=== PATIENT | female | born 1995 | race Caucasian/White ===

== ENCOUNTER → 2018-09-02 | Outpatient (CLI) | payer BC ==
[~2018-09-02] MED LIST: AMIT10TA6 PO; FEXO180T84 PO; HYOS0.1217 PO; IBP200T PO; IOHEXOL 350 MG/ML 100 ML (OMNIPAQUE 350) VIAL IV ONE; KETO-22 PO; LEVO500T69 PO; METO-354 PO; NS 250 ML (IVPB) BAG IV ONE; ONDN4T PO; [UNRECOGNIZED DRUG - REMARK] PO
--- NOTE | 2018-09-02 19:12 | Diagnostic Imaging Report ---
PROCEDURE: CT abdomen and pelvis with contrast, rule out appendicitis. TECHNIQUE: Multiple contiguous axial images were obtained through the abdomen and pelvis after the administration of intravenous contrast. DATE: September 02, 2018. COMPARISON: CT abdomen and pelvis without contrast February 27, 2013. INDICATION: 23-year-old female, right lower quadrant pain, nausea, vomiting. FINDINGS: The visualized portions of the lung bases are clear. The heart is not enlarged. There is no pericardial effusion. The liver is normal in size and contour. There is no identified liver lesion. The main, right, and left portal veins are patent. The gallbladder is unremarkable. There is no intrahepatic or extrahepatic bile duct dilation. The main pancreatic duct is not abnormally dilated. Unremarkable appearance of the pancreatic parenchyma. The spleen is not enlarged. There are small accessory splenules. The adrenal glands are unremarkable. Unremarkable appearance of the renal parenchyma. The urinary collecting systems are not distended. There is no identified renal or ureteral stone. The urinary bladder is unremarkable in appearance. There is low attenuation within the central aspect of the uterus potentially reflecting a small amount of fluid in the endometrial canal. There are bilateral ovarian follicles. There is trace amount of free pelvic fluid which is potentially physiologic. The appendix is well seen on axial image 99 and adjacent sequential images. There is no evidence of acute appendicitis. The intestinal tract is not distended. There is no free intraperitoneal air. There is no drainable fluid collection. There is no identified abnormally enlarged lymph node within the abdomen or pelvis which specifically meets CT size criteria for adenopathy. There is sclerotic lesion in the right femoral head subcentimeter in size most likely reflects a benign bone island. There is no identified acute bony abnormality. IMPRESSION: CT ABDOMEN AND PELVIS. 1. No evidence of acute appendicitis or other acute abnormality within the abdomen or pelvis. 2. Trace amount of free pelvic fluid which is potentially physiologic. Probable small amount of fluid within the endometrial canal and bilateral ovarian follicles. Dictated by: Dictated on workstation # [id number]
== END ==
LOC: RAD 14:57
PROVIDERS: ATTEND Internal Medicine
DX: R10.31 Right lower quadrant pain (principal); R11.2 Nausea with vomiting, unspecified
CPT/HCPCS: 74177

== ENCOUNTER → 2019-01-16 | Outpatient (CLI) | payer BC ==
[~2019-01-16] MED LIST changes: -IOHEXOL 350 MG/ML 100 ML (OMNIPAQUE 350) VIAL IV ONE; -NS 250 ML (IVPB) BAG IV ONE
--- NOTE | 2019-01-16 16:16 | Diagnostic Imaging Report ---
PROCEDURE: US Thyroid. TECHNIQUE: Multiple Real-time grayscale images were obtained of the thyroid in various projections. INDICATION: Goiter and dysphagia. FINDINGS: The right lobe of the thyroid measures 4.3 x 1.7 x 1.7 cm. The left lobe measures 4.7 x 1.4 x 1.5 cm. Both lobes are heterogeneous. No discrete thyroid mass is identified, however. The isthmus is 4 mm in thickness. IMPRESSION: Heterogeneous thyroid. No discrete thyroid mass is detected. Dictated by: Dictated on workstation # [id number]
== END ==
LOC: RAD 14:57
PROVIDERS: ATTEND Internal Medicine
DX: E04.9 Nontoxic goiter, unspecified (principal)
CPT/HCPCS: 76536

== ENCOUNTER → 2020-03-02 | Outpatient (CLI) | payer BC ==
--- NOTE | 2020-03-02 13:23 | Diagnostic Imaging Report ---
INDICATION: Cramping in the left pelvis. The uterus measures 9.3 x 6.3 x 5.8 cm. There is a tiny intrauterine gestational sac approximately 12 mm in diameter. No pole is seen at this time. A yolk sac is visualized. No akila-gestational sac hemorrhage is detected. Right ovary was not visualized. Left ovary measures 3.5 x 2.5 x 2.5 cm. There is no free fluid or adnexal mass. IMPRESSION: Early intrauterine gestational sac, without evidence of a pole. This could be owing to early gestation. Follow-up ultrasound or correlation with serial beta hCG levels could be performed to confirm viability. Dictated by: Dictated on workstation # [id number]
== END ==
LOC: RAD 11:23
PROVIDERS: ATTEND Internal Medicine
DX: O99.89 Other specified diseases and conditions complicating pregnancy, childbirth and the puerperium (principal); R10.2 Pelvic and perineal pain
CPT/HCPCS: 76801; 76817

== ENCOUNTER → 2022-01-12 | Outpatient (CLI) | payer BC ==
--- NOTE | 2022-01-12 08:26 | Diagnostic Imaging Report ---
CLINICAL INDICATION: Patient with right upper quadrant, abdominal pain and nausea. EXAM: Right upper quadrant ultrasound. COMPARISON: Right quadrant ultrasound dated 10/18/2009. FINDINGS: The pancreas has normal echogenicity and configuration. The abdominal aorta and IVC are unremarkable. The liver has normal echogenicity and echotexture. The liver surface is smooth. There is no liver mass. The main portal vein demonstrates hepatopetal flow. The liver measures 14.5 cm. There is no intrahepatic or extrahepatic ductal dilation. The common bile duct measures 3 mm. The gallbladder is mild to moderately fluid filled with no stones or sludge. Gallbladder wall is upper limits of normal for size. There is no sonographic Logan sign. The right kidney shows no mass or hydronephrosis. The right kidney measures 11.2 cm. There is no abdominal ascites. IMPRESSION: Unremarkable right upper quadrant ultrasound. Dictated by: Dictated on workstation # [id number]
== END ==
LOC: RAD 07:15
PROVIDERS: ATTEND Internal Medicine
DX: R10.11 Right upper quadrant pain (principal); R11.0 Nausea
CPT/HCPCS: 76705

== ENCOUNTER → 2022-01-25 | Outpatient (CLI) | payer BC ==
[~2022-01-25] MED LIST changes: +CATHETER FLUSH 10 ML SYR IVP PRN
--- NOTE | 2022-01-25 14:45 | Diagnostic Imaging Report ---
Right upper quadrant pain Hepatobiliary scan 01/25/2022. FINDINGS: After the uneventful administration of 5.13 mCi of technetium 99m mebrofenin intravenously, subsequent imaging was performed with prompt homogeneous uptake throughout the liver. Gallbladder and small bowel seen within less than 60 minutes. Eight ounces of Ensure ingested at 1 hour with continued imaging performed. Ejection fraction is calculated at 75.4%. IMPRESSION: 1. Nonobstructive examination. 2. Normal ejection fraction. Dictated by: Dictated on workstation # [id number]
== END ==
LOC: CARD 12:00
PROVIDERS: ATTEND Internal Medicine
DX: R10.11 Right upper quadrant pain (principal); R11.0 Nausea
CPT/HCPCS: 78227; A9537

== ENCOUNTER → 2023-10-15 | Outpatient (CLI) | payer OTHER ==
[~2023-10-15] MED LIST changes: -CATHETER FLUSH 10 ML SYR IVP PRN
--- NOTE | 2023-10-15 11:12 | Diagnostic Imaging Report ---
PROCEDURE: US Non-ob pelvis comp/trans. TECHNIQUE: Multiple realtime grayscale images were obtained of the pelvis in various projections endovaginally. Transabdominal imaging was also performed. INDICATION: Left lower quadrant pain. COMPARISON: None available. FINDINGS: The uterus measures 9.4 x 4.6 x 5.6 cm and is anteverted. The myometrium is normal in echogenicity without discrete mass. The endometrium measures up to 0.9 semi- where visualized, and is normal in echogenicity. The right ovary measures 3.8 x 1.8 x 2.6 cm. The left ovary measures 3.1 x 2.3 x 2.5 cm. Both ovaries are physiologic in appearance with small follicles present. Blood flow is seen in both ovaries on color doppler imaging. No suspicious adnexal mass or fluid collection. A trace amount of free simple fluid is within physiologic limits. IMPRESSION: 1. No ovarian torsion. 2. Physiologic appearance of the ovaries. Dictated by: Dictated on workstation # [id number]
== END ==
LOC: RAD 09:11
PROVIDERS: ATTEND Nurse Practitioner Family
DX: R10.32 Left lower quadrant pain (principal)
CPT/HCPCS: 76830; 76856